=== PATIENT | male | born 1985 | race African-American/Black ===

== ENCOUNTER 2018-03-20 08:55 | Emergency (ER) | payer OTHER ==
[~2018-03-20] VITALS: Ht 190.5 cm; Wt 95.3 kg
[~2018-03-20 08:55] MED LIST: CIPRO500 MG PO; FLAGYL500 MG PO; HYDROCODONE-AP1 EAC6 PO; PRINIVIL20 M1 PO; XANAX 0.5 MG0.5 MG PO
[2018-03-20] MEDS ORDERED: NAPROSYN500 MG PO (09:15)
[2018-03-20] MEDS ORDERED: CYCLOBENZAPRINE5 MG PO (09:15)
[2018-03-20] MEDS ORDERED: HYDROCODON-ACE1 EAC7 PO (09:15)
[2018-03-20 09:23] VITALS: BP 162/66
--- NOTE | 2018-03-20 16:42 | EKG ---
[place] [address] ELECTROCARDIOGRAM REPORT Name: MACK TRIANA Room: [facility]#: [id number] Admission: 03/20/18 Attend Phys: Discharge: 03/20/18 Date of : 85 Report #: [id number] THIS REPORT FOR: //name// [facility] ED Test Date: 2018-03-20 Test Time: 09:18:06 Pat Name: MACK TRIANA Department: Room: Gender: M Adjustment Clerk: Cassius BRADSHAW : 1985 Requested By: Triston Angel Order Number: [id number] Reading MD: Jimmie Reyes Measurements Intervals [place] Rate: 73 P: 45 MD: 144 QRS: 68 QRSD: 106 T: 21 QT: 381 QTc: 420 Interpretive Statements Sinus rhythm Atrial premature complexes RSR' in V1 or V2, right VCD or RVH No previous ECG available for comparison Electronically Signed On 03-20-2018 16:41:43 CDT by Jimmie Reyes [email or web address] <ELECTRONICALLY SIGNED> By: Jimmie Reyes MD, [facility] 03/20/18 1641 7 7 Jimmie Reyes MD, FACC /EPI
== END 2018-03-20 09:24 | disposition home or self-care (01) ==
LOC: M.ERS 08:55
DX: M54.42 Lumbago with sciatica, left side (principal); I10 Essential (primary) hypertension; F41.9 Anxiety disorder, unspecified; F17.210 Nicotine dependence, cigarettes, uncomplicated; Z88.0 Allergy status to penicillin; Z88.1 Allergy status to other antibiotic agents

== ENCOUNTER 2019-09-15 09:08 | Emergency (ER) | payer BC ==
[~2019-09-15] VITALS: Ht 190.5 cm; Wt 88.5 kg
[~2019-09-15 09:08] MED LIST changes: +CYCLOBENZAPRINE5 MG PO; +HYDROCODON-ACE1 EAC7 PO; +NAPROSYN500 MG PO
[2019-09-15] MEDS ORDERED: XANAX 0.5 MG0.5 MG PO (09:20)
[2019-09-15] MEDS ORDERED: BALSALAZIDE DI750 M1 PO (09:24)
[2019-09-15 09:39] LABS: ABSOLUTE LYMPHOCYTES 1.3 thou/uL (0.8-5.3); ABSOLUTE MONOCYTES 0.6 thou/uL (0.0-1.2); ABSOLUTE NEUTROPHILS 5.2 thou/uL (1.6-8.1); BASOPHILS 0.4 %; EOSINOPHILS 0.5 %; HEMATOCRIT 44.4 % (42.0-52.0); HEMOGLOBIN 15.5 gm/dL (14.0-18.0); LYMPHOCYTES 18.3 %; MCH 32.6 pg (26.0-34.0); MCHC 34.8 g/dL (28.0-37.0); MCV 93.6 fL (80.0-100.0); MONOCYTES 8.9 %; MPV 6.9 fl. (7.2-11.1); NUCLEATED RBCS 0 /100WBC; PLATELET COUNT* 305 thou/uL (150-400); POLYS 71.9 %; RBC 4.74 mil/uL (4.50-6.00); RDW-CV 14.1 % (10.5-14.5); WBC 7.2 thou/uL (4.0-11.0)
[2019-09-15 09:50] LABS: CALCIUM 8.7 mg/dL (8.5-10.1); POTASSIUM 3.7 mmol/L (3.5-5.1)
[2019-09-15 09:55] LABS: ALBUMIN 3.9 g/dL (3.4-5.0); TOTAL BILIRUBIN 0.5 mg/dL (<0.1-1.0); TOTAL PROTEIN 7.7 g/dL (6.4-8.2)
[2019-09-15 12:22] LABS: URINE BILIRUBIN NEGATIVE (Negative); URINE BLOOD NEGATIVE (Negative); URINE CLARITY CLEAR; URINE COLOR YELLOW; URINE GLUCOSE-RANDOM NEGATIVE (Negative); URINE KETONES NEGATIVE (Negative); URINE LEUKOCYTES-REFLEX NEGATIVE (Negative); URINE NITRITE-REFLEX NEGATIVE (Negative); URINE PROTEIN NEGATIVE (Negative); URINE UROBILINOGEN 0.2 E.U./dl (0.2-1.0)
[2019-09-15 12:27] VITALS: BP 115/69
== END 2019-09-15 12:27 | disposition home or self-care (01) ==
LOC: M.ERS 09:08
PROVIDERS: Personal Emergency Response Attendant
DX: K51.90 Ulcerative colitis, unspecified, without complications (principal); R51 Headache; R19.7 Diarrhea, unspecified; I10 Essential (primary) hypertension; Z88.0 Allergy status to penicillin; Z88.1 Allergy status to other antibiotic agents